=== PATIENT | male | born 1985 | race Caucasian/White ===

== ENCOUNTER 2017-06-09 19:46 | Emergency (ER) | payer OTHER ==
[~2017-06-09] VITALS: Ht 193 cm; Wt 96.3 kg
[~2017-06-09 19:46] MED LIST: BACTRIM,SEPT1 TABLET PO; CATAPRES0.1 MG PO; KEFLEX500 MG PO; NAPROSYN500 MG PO; NARCAN4 MG NS; NO ROUTINE HOME MEDS; OXCARBAZEPINE600 MG PO; TRAZODONE HCL50 MG PO; ULTRAM50 MG PO
[2017-06-09] MEDS ORDERED: NORCO 5/3251 TABLET PO (21:33)
[2017-06-09 22:11] VITALS: BP 130/54
== END 2017-06-09 22:12 | disposition home or self-care (01) ==
LOC: EME → EDBD 19:46 → EME 19:46
DX: S12.400A Unspecified displaced fracture of fifth cervical vertebra, initial encounter for closed fracture (principal); W16.622A Jumping or diving into natural body of water striking bottom causing other injury, initial encounter; Y93.11 Activity, swimming; Y92.832 Beach as the place of occurrence of the external cause; M50.322 Other cervical disc degeneration at C5-C6 level; F17.200 Nicotine dependence, unspecified, uncomplicated
CPT/HCPCS: 72125; 99281; 99284